=== PATIENT | male | born 1935 | race Caucasian/White ===

== ENCOUNTER 2016-10-22 12:33 | Emergency (ER) | payer BC, OTHER ==
[~2016-10-22] VITALS: Ht 188 cm; Wt 62.0 kg
[~2016-10-22 12:33] MED LIST: FLUT16SP24 NASAL
[2016-10-22 13:02] VITALS: Ht 188 cm; Wt 62.0 kg
[2016-10-22] MEDS ORDERED: SOD CHLORIDE 0.9% 1,000 ML IV STA (15:01)
[2016-10-22] MEDS ORDERED: GLUC100015 PO (15:35)
[2016-10-22] MEDS ORDERED: CHOL100062 PO (15:35)
[2016-10-22] MEDS ORDERED: ASCO500C7 PO (15:36)
[2016-10-22 15:37] LABS: BASOPHILS % 0.6 % (0.0-2.0); EOSINOPHILS % 0.4 % (0.0-7.0); HEMATOCRIT 37.1 % (42.0-52.0); HEMOGLOBIN 12.5 g/dl (14.0-18.0); LYMPHOCYTES # 1.2 10^3/ul (0.8-2.9); MEAN CORPUSCULAR HEMOGLOBIN 29.8 pg (29.0-33.0); MEAN CORPUSCULAR HGB CONC 33.7 g/dl (32.0-37.0); MEAN CORPUSCULAR VOLUME 88.5 fl (82.0-101.0); MEAN PLATELET VOLUME 9.2 fl (7.4-10.4); MONOCYTE # 0.6 10^3/ul (0.3-0.9); MONOCYTES % 8.9 % (0.0-11.0); PLATELET COUNT 247 10^3/UL (140-415); RED BLOOD COUNT 4.19 10^6/ul (4.70-6.10); RED CELL DISTRIBUTION WIDTH 13.7 % (11.5-14.5); WHITE BLOOD COUNT 6.9 10^3/ul (4.8-10.8)
[2016-10-22] MEDS ORDERED: D-MA1POW MC (15:37)
[2016-10-22 15:53] LABS: INR 1.02; PARTIAL THROMBOPLASTIN TIME 28.2 Sec (25.0-35.0); PROTIME 13.4 Sec (12.2-14.2)
[2016-10-22 15:57] LABS: ALANINE AMINOTRANSFERASE 35 IU/L (13-69); ALBUMIN 4.2 g/dl (3.3-4.9); ALKALINE PHOSPHATASE 91 IU/L (42-121); ANION GAP 13 (8-16); ASPARTATE AMINO TRANSFERASE 27 IU/L (15-46); BILIRUBIN,INDIRECT 0.6 mg/dl (0-1.1); BILIRUBIN,TOTAL 0.6 mg/dl (0.2-1.3); BLOOD UREA NITROGEN 14 mg/dl (7-20); CALCIUM 9.4 mg/dl (8.4-10.2); CARBON DIOXIDE 29 mmol/L (21-31); CHLORIDE 103 mmol/L (97-110); CREATININE 0.86 mg/dl (0.61-1.24); GLUCOSE 88 mg/dl (70-220); POTASSIUM 4.4 mmol/L (3.5-5.1); SODIUM 141 mmol/L (135-144); TOTAL PROTEIN 7.2 g/dl (6.1-8.1)
[2016-10-22 16:25] LABS: TROPONIN-I < 0.012 ng/ml (0.00-0.12)
[2016-10-22 16:47] LABS: ADD UMIC YES; UR ASCORBIC ACID NEGATIVE (NEGATIVE); UR BILIRUBIN (Dip) NEGATIVE (NEGATIVE); UR BLOOD (Dip) NEGATIVE (NEGATIVE); UR CLARITY CLEAR (CLEAR); UR COLOR YELLOW (YELLOW); UR GLUCOSE (Dip) NEGATIVE (NEGATIVE); UR KETONES (Dip) 1+ mg/dL (NEGATIVE); UR LEUKOCYTE ESTERASE (Dip) 1+ Leu/ul (NEGATIVE); UR NITRITE (Dip) NEGATIVE (NEGATIVE); UR RBC 1 /HPF (0-5); UR SPECIFIC GRAVITY (Dip) 1.005 (1.003-1.030); UR TOTAL PROTEIN (Dip) NEGATIVE (NEGATIVE); UR UROBILINOGEN (Dip) NEGATIVE (NEGATIVE)
--- NOTE | 2016-10-22 17:23 | RADRPT ---
PROCEDURE: CT abdomen and pelvis without IV contrast. CLINICAL INDICATION: Abdominal pain TECHNIQUE: CT scan of the abdomen and pelvis without contrast was performed on the [employer] volumetric [address] scanner. The patient was scanned without intravenous contrast. Coronal and sagittal refo rmatted images were obtained from the axial source images. The CTDI vol is 5.67 mGy and the DLP is 3 11.39 mGy-cm. One or more of the following dose reduction techniques were used: Automated exposure control. Adjustment of the mA and/or kV according to patient size. Use of iterative reconstruction technique. COMPARISON: None. FINDINGS: CT abdomen: Mild scarring in the right middle lobe is suggested. The remainder of the lung bases are clear. The heart size is not enlarged and is without pericardial thickening or effusion. The liver is normal in size and density and is without focal mass or intrahepatic biliary dilatation . The spleen is normal in size and homogeneous in density. The stomach is grossly unremarkable. T he pancreas as visualized is normal. The gallbladder and biliary tree are unremarkable and there is no evidence for common bile duct dilatation. The adrenal glands are symmetric and normal. The kid neys are symmetric in size. Mild left hydronephrosis is seen with mild to moderate left hydroureter. No obstructing calculus in the left collecting system is identified. The right collecting system is normal. No renal calculus or obstructive uropathy or mass lesion is seen. The aorta is of normal in caliber. Aortic calcifications are seen. There is no retroperitoneal lymph adenopathy. The trino hepatis region is clear. The small and large bowel and mesentery, as visuali zed, are unremarkable. The normal appendix is identified. CT pelvis: The pelvic organs are normal. The pelvic sidewalls and inguinal regions are clear. No pelvic mass, lymphadenopathy, or free fluid is seen. No acute inflammation is seen. The urinary bladder is sig nificantly distended. The surrounding osseous structures are unremarkable. No osteolytic or osteoblastic lesion is detect ed. IMPRESSION: 1. Mild left hydronephrosis and mild to moderate left hydroureter without evidence of obstructing s tone or mass. The findings may be secondary to a pass stone. In addition, the findings may be second meena to the significantly distended urinary bladder. RPTAT: HPNM Rip Hull, Physician Date Time Electronically viewed and signed by Rip Hull, Physician on 10/22/2016 17:22 /
[2016-10-22] MEDS ORDERED: CEFTRIAXONE 1 GM/50 ML (PMX) 50 ML IVPB ONE (17:30)
--- NOTE | 2016-10-22 17:45 | ERD ---
ER Documentation Chief Complaint Date/Time DATE: 10/22/16 TIME: 17:42 Chief Complaint generalized weakness; feels like passing; nausea x 2 days; worse today HPI This is an 81-year-old male who presents to the emergency room for evaluation of generalized weakness. This patient is also complaining of nausea and states that he has been more constipated than normal. He did start taking Colace approximately 2 days ago without relief of his symptoms.He denies any active abdominal pain, chest pain or palpitations at this time ROS All systems reviewed and are negative except as per history of present illness. Medications Home Meds Reported Medications D-Mannose (D-Mannose) 1 Gm Powder, 1 GM MC BID 10/22/16 Ascorbic Acid* (Vitamin C*) 500 Mg Capsule.sa, 500 MG PO BID, CAP 10/22/16 Cholecalciferol* (Vitamin D3*) 1,000 Unit Tablet, 1000 UNIT PO BID, TAB 10/22/16 Glucosamine Sulfate 2KCL (GLUCOSAMINE) 1,000 Mg Tablet, 1000 MG PO BID, TAB 10/22/16 Fluticasone Propionate* (Flonase* Nasal) 50 Mcg/[place] - 16 Gm [place].susp, 1 SPRAY NASAL DAILY, SPRAY (TO EACH NOSTRIL) 06/25/14 Allergies Allergies: Coded Allergies: atenolol (Verified Allergy, Unknown, 10/22/16) fentanyl (Verified Allergy, Unknown, 10/22/16) PMhx/Soc History of Surgery: Yes (DENTAL SX,CATARACT) Anesthesia Reaction: No Hx Neurological Disorder: No Hx Respiratory Disorders: No Hx Cardiac Disorders: No Hx Psychiatric Problems: No Hx Miscellaneous Medical Probl: No Hx Alcohol Use: No Hx Substance Use: No Hx Tobacco Use: No Smoking Status: Never smoker Physical Exam Vitals Vital Signs Date Time Temp Pulse Resp B/P Pulse Ox O2 Delivery O2 Flow Rate FiO2 10/22/16 16:02 72 18 130/64 98 Room Air 10/22/16 13:02 106 20 123/66 98 Physical Exam INITIAL VITAL SIGNS: Reviewed by me GENERAL: The patient is well developed and appropriate for usual state of health in no apparent distress HEENT: Pupils equal, round, and reactive to light. EOMI. There is no scleral icterus. NECK: C-spine is soft and supple, there is no meningismus. There is no cervical lymphadenopathy. LUNGS: Clear to auscultation bilaterally. There are no rales, wheezes or rhonchi. HEART: Regular rate and rhythm, no murmurs, clicks, rubs or gallops. ABDOMEN: Suprapubic tenderness to palpation, otherwise soft, non-tender, non- distended. There are bowel sounds in all four quadrants. No rebound or guarding. EXTREMITIES: There is no peripheral cyanosis or edema. No focal swelling or erythema. NEUROLOGICAL: The patient moves all four extremities with 5/5 strength. Cranial nerves II - XII are intact. Normal gait. Alert and oriented SKIN: There is no apparent rash or petechiae. HEME/LYMPHATIC: There is no evidence of excessive bruising or lymphedema. PSYCHIATRIC: The patient does not appear anxious or depressed. Result Diagram: 10/22/16 1525 10/22/16 1525 Results 24 hrs Laboratory Tests Test 10/22/16 15:25 10/22/16 16:30 White Blood Count 6.910^3/ul Red Blood Count 4.1910^6/ul Hemoglobin 12.5g/dl Hematocrit 37.1% Mean Corpuscular Volume 88.5fl Mean Corpuscular Hemoglobin 29.8pg Mean Corpuscular Hemoglobin Concent 33.7g/dl Red Cell Distribution Width 13.7% Platelet Count 12695^3/UL Mean Platelet Volume 9.2fl Neutrophils % 72.0% Lymphocytes % 18.0% Monocytes % 8.9% Eosinophils % 0.4% Basophils % 0.6% Nucleated Red Blood Cells % 0.0/100WBC Neutrophils # (Manual) 5.010^3/ul Lymphocytes # 1.210^3/ul Monocytes # 0.610^3/ul Eosinophils # 0.010^3/ul Basophils # 0.010^3/ul Nucleated Red Blood Cells # 0.010^3/ul Prothrombin Time 13.4Sec Prothrombin Time Ratio 1.0 INR International Normalized Ratio 1.02 Activated Partial Thromboplast Time 28.2Sec Sodium Level 141mmol/L Potassium Level 4.4mmol/L Chloride Level 103mmol/L Carbon Dioxide Level 29mmol/L Anion Gap 13 Blood Urea Nitrogen 14mg/dl Creatinine 0.86mg/dl Glucose Level 88mg/dl Calcium Level 9.4mg/dl Total Bilirubin 0.6mg/dl Direct Bilirubin 0.00mg/dl Indirect Bilirubin 0.6mg/dl Aspartate Amino Transf (AST/SGOT) 27IU/L Alanine Aminotransferase (ALT/SGPT) 35IU/L Alkaline Phosphatase 91IU/L Troponin I < 0.012ng/ml Total Protein 7.2g/dl Albumin 4.2g/dl Globulin 3.00g/dl Albumin/Globulin Ratio 1.40 Lipase 82U/L Urine Color YELLOW Urine Clarity CLEAR Urine pH 7.0 Urine Specific [place] 1.005 Urine Ketones 1+mg/dL Urine Nitrite NEGATIVEmg/dL Urine Bilirubin NEGATIVEmg/dL Urine Urobilinogen NEGATIVEmg/dL Urine Leukocyte Esterase 1+Bill/ul Urine Microscopic RBC 1/HPF Urine Microscopic WBC 20/HPF Urine Hemoglobin NEGATIVEmg/dL Urine Glucose NEGATIVEmg/dL Urine Total Protein NEGATIVEmg/dl Current Medications Medications (Trade) Dose Ordered Sig/Christiano Route PRN Reason Start Time Stop Time Status Last Admin Dose Admin Sodium Chloride 1,000 ml @ 1,000 mls/hr Q1H STAT IV 10/22/16 15:01 10/22/16 16:00 DC 10/22/16 15:33 Ceftriaxone Sodium (Rocephin) 50 ml @ 100 mls/hr ONCE ONCE IVPB 10/22/16 17:30 10/22/16 17:59 10/22/16 17:17 Procedures/MDM EKG: Rate/Rhythm: [Normal Sinus Rhythm] QRS, ST, T-waves: [No changes consistent w/ acute ischemia] Impression: [No evidence of ischemia or arrhythmia] This 81-year-old male presents to the ER for evaluation of constipation, abdominal discomfort. The patient was found to have urinary tract infection based off of his urinalysis in the emergency room. He was given 1 g Rocephin. The patient had a urine culture obtained and will be discharged home at this time with a prescription for ciprofloxacin, and MiraLAX for constipation. His CT does not reveal any obstructive patterns in his bowels, the patient was advised to return to the ER if he develops any worsening symptoms and he verbalized understanding. His troponin is negative and EKG is nonischemic. He is hemodynamically stable at this time Departure Diagnosis: Primary Impression: Acute cystitis Additional Impressions: Generalized weakness Constipation Condition: Stable MARYSE FINLEY DO Oct 22, 2016 17:45
[2016-10-22] MEDS ORDERED: POLY17PO6 PO (17:49)
[2016-10-22 18:20] VITALS: BP 128/78; PULSE 78; RESP 18; TEMP 98.9
== END 2016-10-22 18:34 | disposition home or self-care (01) ==
LOC: E/R 12:33
DX: N30.00 Acute cystitis without hematuria (principal); K59.00 Constipation, unspecified; R10.9 Unspecified abdominal pain; R40.2140 Coma scale, eyes open, spontaneous, unspecified time; R40.2252 Coma scale, best verbal response, oriented, at arrival to emergency department; R40.2362 Coma scale, best motor response, obeys commands, at arrival to emergency department
CPT/HCPCS: 36415; 74176; 80053; 81001; 83690; 84484; 85025; 85610; 85730; 87086; 93005; 96374; 99285; J0696; J7030

== ENCOUNTER 2017-01-24 08:51 | Emergency (ER) | payer OTHER ==
[~2017-01-24] VITALS: Ht 175.3 cm; Wt 61.2 kg
[~2017-01-24 08:51] MED LIST changes: +ASCO500C7 PO; +CHOL100062 PO; +D-MA1POW MC; +GLUC100015 PO; +POLY17PO6 PO
[2017-01-24 08:54] VITALS: Ht 175.3 cm; Wt 61.2 kg
[2017-01-24 09:06] VITALS: TEMP 98.6
[2017-01-24] MEDS ORDERED: SOD CHLORIDE 0.9% 1,000 ML IV STA (09:36)
[2017-01-24] MEDS ORDERED: ONDANSETRON 4 MG INJ IV STA (09:36)
--- NOTE | 2017-01-24 09:43 | ERD ---
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 Several month history of intractable nausea and chronic, intermittent diffuse, crampy, left flank pain which radiates across the abdomen. Denies vomiting or diarrhea but does have intermittent constipation. Several day history of nasal congestion and now with severe, dizziness and lightheadedness and feels as though he is consciousness. Denies chest pain or palpitations. No shortness of breath or cough. Denies headache, visual changes, focal weakness or numbness. No relieving or exacerbating factors. No fevers or chills. Work up by PMD, Dr Thomas has been negative. ROS All systems reviewed and are negative except as per history of present illness. Medications Home Meds Active Scripts Ondansetron Hcl* (Zofran*) 4 Mg Tablet, 4 MG PO Q6H for NAUSEA AND/OR VOMITING, #20 TAB Prov:PHIL KUMAR MD 01/24/17 Meclizine Hcl* (Antivert*) 12.5 Mg Tab, 25 MG PO Q8H Y for DIZZINESS, #12 TAB Prov:PHIL KUMAR MD 01/24/17 Polyethylene Glycol* (Miralax*) 17 Gm Powd.pack, 17 GM PO DAILY, #7 Prov:MARYSE FINLEY DO 10/22/16 Reported Medications Melatonin (Melatonin) 3 Mg Tablet.sa, 3 MG PO HS, TAB.SA 01/24/17 D-Mannose (D-Mannose) 1 Gm Powder, 1 GM MC BID 10/22/16 Ascorbic Acid* (Vitamin C*) 500 Mg Capsule.sa, 500 MG PO BID, CAP 10/22/16 Cholecalciferol* (Vitamin D3*) 1,000 Unit Tablet, 1000 UNIT PO BID, TAB 10/22/16 Glucosamine Sulfate 2KCL (GLUCOSAMINE) 1,000 Mg Tablet, 1000 MG PO BID, TAB 10/22/16 Fluticasone Propionate* (Flonase* Nasal) 50 Mcg/[place] - 16 Gm [place].susp, 1 SPRAY NASAL DAILY, SPRAY (TO EACH NOSTRIL) 06/25/14 Allergies Allergies: Coded Allergies: atenolol (Verified Allergy, Unknown, 10/22/16) fentanyl (Verified Allergy, Unknown, 10/22/16) PMhx/Soc Reviewed in chart. As per HPI. History of Surgery: Yes (DENTAL SX,CATARACT) Anesthesia Reaction: No Hx Neurological Disorder: No Hx Respiratory Disorders: No Hx Cardiac Disorders: No Hx Psychiatric Problems: No Hx Miscellaneous Medical Probl: No Hx Alcohol Use: No Hx Substance Use: No Hx Tobacco Use: No FmHx No family history relevant to presenting complaint. Physical Exam Vitals Vital Signs Date Time Temp Pulse Resp B/P Pulse Ox O2 Delivery O2 Flow Rate FiO2 01/24/17 13:00 80 18 138/82 100 Room Air 01/24/17 11:00 76 18 120/74 100 Room Air 01/24/17 09:06 98.6 84 16 123/64 100 Room Air 01/24/17 08:54 99.0 102 20 143/72 99 Physical Exam Const: Alert, anxious Head: Atraumatic Eyes: Normal Conjunctiva. ELLE, EOMI, no nystagmus ENT: Normal External Ears, Nose and Mouth. Neck: Full range of motion. Carotids 2+ without bruits. No meningismus. Resp: BS are equal and clear to auscultation bilaterally Cardio: Regular rate and rhythm, no murmurs, gallops or rubs. Abd: Soft, non tender, non distended. Normal bowel sounds. No masses or abnormal pulsations. Skin: No petechiae or rashes Back: No midline or flank tenderness Ext: No cyanosis, or edema. Pulses 4+ in all extremities. Neur: Awake and alert. CN II-XII grossly intact. Motor and sensory equal bilaterally. Psych: Cooperative, anxious Result Diagram: 01/24/17 1041 01/24/17 1041 Results 24 hrs Laboratory Tests Test 01/24/17 10:41 White Blood Count 6.810^3/ul Red Blood Count 4.1510^6/ul Hemoglobin 12.3g/dl Hematocrit 36.6% Mean Corpuscular Volume 88.2fl Mean Corpuscular Hemoglobin 29.6pg Mean Corpuscular Hemoglobin Concent 33.6g/dl Red Cell Distribution Width 13.9% Platelet Count 38381^3/UL Mean Platelet Volume 9.6fl Neutrophils % 76.9% Lymphocytes % 10.8% Monocytes % 11.3% Eosinophils % 0.3% Basophils % 0.4% Nucleated Red Blood Cells % 0.0/100WBC Neutrophils # 5.310^3/ul Lymphocytes # 0.710^3/ul Monocytes # 0.810^3/ul Eosinophils # 0.010^3/ul Basophils # 0.010^3/ul Nucleated Red Blood Cells # 0.010^3/ul Sodium Level 143mmol/L Potassium Level 4.4mmol/L Chloride Level 102mmol/L Carbon Dioxide Level 30mmol/L Anion Gap 15 Blood Urea Nitrogen 21mg/dl Creatinine 0.89mg/dl Glucose Level 95mg/dl Calcium Level 9.1mg/dl Total Bilirubin 1.2mg/dl Direct Bilirubin 0.00mg/dl Indirect Bilirubin 1.2mg/dl Aspartate Amino Transf (AST/SGOT) 27IU/L Alanine Aminotransferase (ALT/SGPT) 33IU/L Alkaline Phosphatase 80IU/L Troponin I < 0.012ng/ml Total Protein 7.0g/dl Albumin 3.8g/dl Globulin 3.20g/dl Albumin/Globulin Ratio 1.18 Thyroid Stimulating Hormone (TSH) 2.130MIU/L Current Medications Medications (Trade) Dose Ordered Sig/Christiano Route PRN Reason Start Time Stop Time Status Last Admin Dose Admin Sodium Chloride (NS) 1,000 ml @ 1,000 mls/hr Q1H STAT IV 01/24/17 09:36 01/24/17 10:35 DC 01/24/17 11:00 Ondansetron HCl (Zofran Inj) 4 mg ONCE STAT IV 01/24/17 09:36 01/24/17 09:40 DC 01/24/17 11:01 Meclizine HCl (Antivert) 25 mg ONCE ONCE PO 01/24/17 10:00 01/24/17 10:01 DC 01/24/17 11:01 LABS: Mild elevated BUN otherwise unremarkable. EKG: TIME: 10: 41. Sinus rhythm. Ventricular rate 74. Early repolarization but no acute ST segment elevation or depression. Normal [place] QRS. No ectopy. EP Interpretation: Abnormal EKG. IMAGING: PROCEDURE: CT abdomen and pelvis without contrast. CLINICAL INDICATION: Abdominal pain TECHNIQUE: CT scan of the abdomen and pelvis without contrast was performed on a [employer] CT scanner utilizing axial imaging from the lung bases through the pubis symphysis. The patient was scanned without intravenous contrast. Sagittal and coronal reformatted images were made. The CTDIvol is mGy and the DLP is 5.98 337.39 mGycm. DICOM images are available. One of the following 3 dose reduction techniques were used during this CT examination: 1) Automated exposure control 2) Adjustment of the mA +/- kV according to patient size or 3) Use of iterative reconstruction technique COMPARISON: None. FINDINGS: A mild pectus excavatum is present. The lung bases are clear. The heart size is normal. No pericardial or pleural effusion is present. The visualized liver is normal attenuation and is mildly increased in size measuring 19 cm superior inferiorly. The visualized spleen, as pancreas, and gallbladder are normal. No evidence for intrahepatic or extrahepatic biliary ductal dilatation is present. The bilateral adrenal glands are normal. The bilateral kidneys demonstrate multiple low attenuation right renal foci, most compatible with cysts and incompletely evaluated. Consider follow-up with renal ultrasound. No evidence for hydroureter nephrosis or nephroureterolithiasis is present. The aorta demonstrates vascular calcifications without aneurysmal dilatation. No evidence for ascites or pneumoperitoneum is present. No evidence for diverticulosis, diverticulitis, or appendicitis is present., The visualized urinary bladder is well distended. No evidence for masses or pathologic lymphadenopathy is present. The prostate gland is small. No evidence for pneumoperitoneum The surrounding osseous structures are remarkable for severe degenerative endplate changes at L5-S1 . IMPRESSION: 1. No evidence for acute intra-abdominal or pelvic pathology. 2. Mild pectus excavatum. 3. No evidence for bowel obstruction, ascites or pneumoperitoneum. 4. Mild atherosclerotic vascular disease RPTAT: H D C .Kim Rosado MD, Date Time Electronically viewed and signed by .Kim Rosado MD, on 01/24/2017 10: 32 .C/ PROCEDURE: CT Brain without contrast. CLINICAL INDICATION: Dizziness. TECHNIQUE: A CT of the brain without contrast was performed utilizing axial sections from the skull base through the vertex. One or more the following does reduction techniques were utilized: Automated exposure control, adjustment of the mA/ or kV according to patient's size, or use of iterative reconstruction technique. Total exam CTDIvol is 44.50 MGy and DLP is 720.23 mGy-cm. DICOM images are available. COMPARISON: Brain CT 06/25/2014. FINDINGS: The ventricles and sulci are mildly to moderately prominent indicative of volume loss. There is mild cerebellar volume loss. There is no intracranial hemorrhage, mass effect or midline shift. No abnormal intra-axial or extra- axial fluid collections are seen. The barlow/white matter differentiation is well preserved. Cavum septum pellucidum and cavum vergae are noted, anatomical variation. There are mild to moderate foci of hypoattenuation in the periventricular, deep , and subcortical white matter, which are nonspecific in etiology but likely reflect chronic small vessel ischemic changes. There are mild to moderate intracranial vascular calcifications consistent with atherosclerosis. Small old lacunar infarct is noted in the left lentiform nucleus. The visualized paranasal sinuses are essentially clear. IMPRESSION: 1. No acute intracranial hemorrhage, transcortical infarction or mass effect. 2. Mild to moderate intracranial atherosclerosis and chronic small vessel ischemic changes. 3. Mild to moderate generalized cerebral and cerebellar volume loss. RPTAT: UU .Inga Stubbs MD, MD Date Time Electronically viewed and signed by .Inga Stubbs MD, MD on 01/24/2017 10: 09 .N/ Procedures/MDM DOCUMENTS REVIEWED: ED nurse prior ED and prior records. Patient was admitted in 2014 for syncope and workup was negative including echocardiogram which showed an ejection fraction of 60%. REEXAMINATION/REEVALUATION: Time: 12:00. Improved. Pain decreased Time: 14:00. Doing well. VSS. No dizziness, nausea or abdominal pain. MEDICAL DECISION MAKIN-year-old male with history of prostatism presents to the emergency department with multiple complaints including abdominal pain, nausea and dizziness. CT of the brain unremarkable for mass, hydrocephalus, hemorrhage or infarct. Vertebrobasilar TIA unlikely. No evidence of central vertigo. No cardiac dysrhythmia, aortic stenosis or evidence of ACS. TSH is normal. No electrolyte abnormalities or hyponatremia. No anemia. Abdominal pain or unknown etiology. CT performed to evaluate for an acute process, including but not limited to mass, obstruction, appendicitis, diverticulitis, AAA, colitis , mesenteric ischemia and obstructive uropathy is unremarkable. Symptoms likely secondary to peripheral vertigo although seizure, multisensory deficit disorder , anxiety and dementia also considered. An occult neoplasm is not ruled out. Patient is frustrated with lack of diagnosis but will not entertain assisted living at this point. In the absence of signs of serious disease symptomatic treatment and further outpatient workup is appropriate. Stable for discharge with precautionary instructions and outpatient follow-up as counseled. Counseled patient regarding diagnostic workup, diagnosis and need for followup. Understands to return to ED if symptoms recur, worsen or any other concerns. OBSERVATION NOTE: At 10:00 the patient was entered into observation status to establish the need for admission. During this time the patient was treated for dizziness and abdominal pain. Additionally, extensive evaluation including, CBC , Chemistry, Urinalysis, EKG, CXR, CAT scan of theabd/pelvis and brain were preformed with results interpreted as above. Vitals signs were monitored and repeat exams were performed every 15-20 minutes. At 14:00 the patient was reexamined; VSS, afebrile, symptoms improved and tolerating PO's. Based on these findings the patient was discharged from observation period as it was determined that the patient was improved and met criteria for discharge. TOTAL OBSERVATION TIME: 4 Hours. Departure Diagnosis: Primary Impression: Abdominal pain of unknown etiology Additional Impressions: Dizziness Nausea Condition: Stable (Improved) PHIL KUMAR MD Jan 24, 2017 09:43
[2017-01-24] MEDS ORDERED: MECLIZINE 12.5 MG TAB PO ONE (10:00)
--- NOTE | 2017-01-24 10:09 | RADRPT ---
PROCEDURE: CT Brain without contrast. CLINICAL INDICATION: Dizziness. TECHNIQUE: A CT of the brain without contrast was performed utilizing axial sections from the skul l base through the vertex. One or more the following does reduction techniques were utilized: Aut[place] jaun exposure control, adjustment of the mA/ or kV according to patient's size, or use of iterative r econstruction technique. Total exam CTDIvol is 44.50 MGy and DLP is 720.23 mGy-cm. DICOM images are available. COMPARISON: Brain CT 06/25/2014. FINDINGS: The ventricles and sulci are mildly to moderately prominent indicative of volume loss. There is mild cerebellar volume loss. There is no intracranial hemorrhage, mass effect or midline shift. No abn ormal intra-axial or extra-axial fluid collections are seen. The barlow/white matter differentiation i s well preserved. Cavum septum pellucidum and cavum vergae are noted, anatomical variation. There are mild to moderate foci of hypoattenuation in the periventricular, deep, and subcortical whi te matter, which are nonspecific in etiology but likely reflect chronic small vessel ischemic change s. There are mild to moderate intracranial vascular calcifications consistent with atherosclerosis. Small old lacunar infarct is noted in the left lentiform nucleus. The visualized paranasal sinuses are essentially clear. IMPRESSION: 1. No acute intracranial hemorrhage, transcortical infarction or mass effect. 2. Mild to moderate intracranial atherosclerosis and chronic small vessel ischemic changes. 3. Mild to moderate generalized cerebral and cerebellar volume loss. RPTAT: UU .Inga Stubbs MD, Date Time Electronically viewed and signed by .Inga Stubbs MD, MD on 01/24/2017 10:09 .N/
--- NOTE | 2017-01-24 10:32 | RADRPT ---
PROCEDURE: CT abdomen and pelvis without contrast. CLINICAL INDICATION: Abdominal pain TECHNIQUE: CT scan of the abdomen and pelvis without contrast was performed on a [employer] CT scanner utilizing axial imaging from the lung bases through the pubis symphysis. The patient was sc anned without intravenous contrast. Sagittal and coronal reformatted images were made. The CTDIvol is mGy and the DLP is 5.98 337.39 mGycm. DICOM images are available. One of the following 3 dose reduction techniques were used during this CT examination: 1) Automated exposure control 2) Adjustment of the mA +/- kV according to patient size or 3) Use of iterative reconstruction technique COMPARISON: None. FINDINGS: A mild pectus excavatum is present. The lung bases are clear. The heart size is normal. No pericardial or pleural effusion is present. The visualized liver is normal attenuation and is mildly increased in size measuring 19 cm superior inferiorly. The visualized spleen, as pancreas, and gallbladder are normal. No evidence for intrahep atic or extrahepatic biliary ductal dilatation is present. The bilateral adrenal glands are normal. The bilateral kidneys demonstrate multiple low attenuation right renal foci, most compatible with cy sts and incompletely evaluated. Consider follow-up with renal ultrasound. No evidence for hydrourete r nephrosis or nephroureterolithiasis is present. The aorta demonstrates vascular calcifications without aneurysmal dilatation. No evidence for ascites or pneumoperitoneum is present. No evidence for diverticulosis, diverticulit is, or appendicitis is present., The visualized urinary bladder is well distended. No evidence for masses or pathologic lymphadenopat hy is present. The prostate gland is small. No evidence for pneumoperitoneum The surrounding osseous structures are remarkable for severe degenerative endplate changes at L5-S1 . IMPRESSION: 1. No evidence for acute intra-abdominal or pelvic pathology. 2. Mild pectus excavatum. 3. No evidence for bowel obstruction, ascites or pneumoperitoneum. 4. Mild atherosclerotic vascular disease RPTAT: H D C .Kim Rosado MD, Date Time Electronically viewed and signed by .Kim Rosado MD, on 01/24/2017 10:32 .C/
[2017-01-24 10:55] LABS: BASOPHILS % 0.4 % (0.0-2.0); EOSINOPHILS % 0.3 % (0.0-7.0); HEMATOCRIT 36.6 % (42.0-52.0); HEMOGLOBIN 12.3 g/dl (14.0-18.0); LYMPHOCYTES # 0.7 10^3/ul (0.8-2.9); LYMPHOCYTES % 10.8 % (15.0-51.0); MEAN CORPUSCULAR HEMOGLOBIN 29.6 pg (29.0-33.0); MEAN CORPUSCULAR HGB CONC 33.6 g/dl (32.0-37.0); MEAN CORPUSCULAR VOLUME 88.2 fl (82.0-101.0); MEAN PLATELET VOLUME 9.6 fl (7.4-10.4); MONOCYTE # 0.8 10^3/ul (0.3-0.9); MONOCYTES % 11.3 % (0.0-11.0); NEUTROPHIL # 5.3 10^3/ul (1.6-7.5); NEUTROPHILS % 76.9 % (39.0-77.0); PLATELET COUNT 221 10^3/UL (140-415); RED BLOOD COUNT 4.15 10^6/ul (4.70-6.10); RED CELL DISTRIBUTION WIDTH 13.9 % (11.5-14.5); WHITE BLOOD COUNT 6.8 10^3/ul (4.8-10.8)
[2017-01-24 11:13] LABS: ALANINE AMINOTRANSFERASE 33 IU/L (13-69); ALBUMIN 3.8 g/dl (3.3-4.9); ALBUMIN/GLOBULIN RATIO 1.18; ALKALINE PHOSPHATASE 80 IU/L (42-121); ANION GAP 15 (8-16); ASPARTATE AMINO TRANSFERASE 27 IU/L (15-46); BILIRUBIN,INDIRECT 1.2 mg/dl (0-1.1); BILIRUBIN,TOTAL 1.2 mg/dl (0.2-1.3); BLOOD UREA NITROGEN 21 mg/dl (7-20); CALCIUM 9.1 mg/dl (8.4-10.2); CARBON DIOXIDE 30 mmol/L (21-31); CHLORIDE 102 mmol/L (97-110); CREATININE 0.89 mg/dl (0.61-1.24); GLUCOSE 95 mg/dl (70-220); POTASSIUM 4.4 mmol/L (3.5-5.1); SODIUM 143 mmol/L (135-144)
[2017-01-24 11:57] LABS: TROPONIN-I < 0.012 ng/ml (0.00-0.12)
[2017-01-24 13:00] VITALS: BP 138/82; PULSE 80; RESP 18
[2017-01-24] MEDS ORDERED: MELA3TAB17 PO (14:14)
[2017-01-24] MEDS ORDERED: ONDA4TAB8 PO (14:54)
[2017-01-24] MEDS ORDERED: MECL12.574 PO (14:54)
== END 2017-01-24 16:09 | disposition home or self-care (01) ==
LOC: E/R 08:51
DX: R10.9 Unspecified abdominal pain (principal); R11.0 Nausea; R40.2142 Coma scale, eyes open, spontaneous, at arrival to emergency department; R40.2252 Coma scale, best verbal response, oriented, at arrival to emergency department; R40.2362 Coma scale, best motor response, obeys commands, at arrival to emergency department
CPT/HCPCS: 70450; 74176; 80053; 84443; 84484; 85025; 96374; 99285; J2405; J7030

== ENCOUNTER 2017-07-03 03:07 | Inpatient (IN) | END 2017-07-03 16:28 | disposition home or self-care (01) | DRG 313 ==